=== PATIENT | female | born 1990 | race Caucasian/White ===

== ENCOUNTER 2021-11-14 23:35 | Emergency (ER) | payer SELFPAY ==
[2021-11-14 23:40] VITALS: BP 124/75; PULSE 116; RESP 18; TEMP 36.4; O2SAT 99
--- NOTE | 2021-11-15 00:21 | ED.ABDPAIN ---
HPI - Abdominal Pain General Chief Complaint: Abdominal Pain Stated Complaint: lower abd pain Time Seen by Provider: 11/15/21 00:10 History of Present Illness HPI narrative: Patient is a 31-year-old female with a history of tubal ligation (2011) here for evaluation of lower abdominal pain over the past 2 years. Patient states the pain is like a menstrual cramp, is moderate in nature, and is usually present after her menstrual cycles. Last menstrual cycle was 6 days ago, she is currently spotting. Additionally reporting thick, white/green vaginal discharge for the past several days, which is new for her. Denies fevers, chills. She has not been sexually active for the past 2 years, but she does note a history of dyspareunia when she was sexually active. Denies history of known STIs or STDs. She has not followed with an [employer] in several years, but denies history of irregular Paps. Related Data Allergies Allergy/AdvReac Type Severity Reaction Status Date / Time No Known Allergies Allergy Verified 11/15/21 00:32 Review of Systems Review of Systems: Gen: Denies fevers or chills Eyes: Denies eye pain or visual change ENT: Denies congestion Respiratory: Denies shortness of breath or cough CV: Denies chest pain or palpitations GI: Denies abdominal pain nausea, emesis or diarrhea : Reports pelvic pain. Musculoskeletal: Denies back pain or muscle pain Neuro: Denies numbness, tingling, weakness or focal weakness Skin: Denies rash Except as documented, all other systems reviewed and negative Exam Narrative: APPEARANCE: Well appearing, no pain in distress, well-nourished. Head: normocephalic and atraumatic. EYES: PERRLA/EOMI, conjunctivae clear NOSE: No nasal drainage EARS: External ear normal in appearance THROAT: Oropharynx is clear. Mucous membranes are moist. NECK: Supple. No adenopathy, no masses. RESPIRATORY: Airway patent, respirations nonlabored. Clear to auscultation bilaterally, no rales, rhonchi, wheezing. CARDIOVASCULAR: Regular rate and rhythm without murmurs, rubs, or gallops. : Exam performed with terrie Randolph. Patient notes extreme pain with insertion of speculum. Large amount of green/white discharge noted in vaginal vault. Cervical motion tenderness present. No foreign body visualized. ABDOMINAL: Normoactive bowel sounds. Soft, nontender, nondistended. No rebound tenderness or guarding. MUSCULOSKELETAL: Extremities are warm and well-perfused. Moves all extremities well. No edema. NEURO: Normal speech. No focal neurologic deficits. SKIN: Skin is warm and dry. No rashes. PSYCHIATRIC: Anxious appearing, pacing around room. Course Vital Signs Vital signs: Vital Signs Temperature 97.5 F L 11/14/21 23:40 Pulse Rate 116 H 11/14/21 23:40 Respiratory Rate 18 11/14/21 23:40 Blood Pressure 124/75 11/14/21 23:40 Pulse Oximetry 99 11/14/21 23:40 Oxygen Delivery Room Air 11/14/21 23:40 Temperature 97.5 F L 11/14/21 23:40 Pulse Rate 116 H 11/14/21 23:40 Respiratory Rate 18 11/14/21 23:40 Blood Pressure 124/75 11/14/21 23:40 Pulse Oximetry 99 11/14/21 23:40 Oxygen Delivery Room Air 11/14/21 23:40 MDM - Abdominal Pain MDM Narrative Medical decision making narrative: 31 year old female here for evaluation of pelvic pain x 2 years with vaginal discharge. Urine preg negative; afebrile and non-toxic appearing. Her symptoms of pelvic pain and bleeding that she describes to me sound consistent with a normal menstrual cycle. Given chronicity of symptoms, lack of abdominal pain on palpation, and cyclic nature of pain, do not feel imaging is indicated in the ED. Her pain improved with ibuprofen in the ED. However, there was a large amount of green/white discharge on exam accompanied by cervical motion tenderness. Swabs taken; positive for trich, others pending. Given these findings and history of multiple sexual partners, will treat for PID. Provided with [employer] follow up for routine
[2021-11-15] MEDS: IBUPROFEN 600 MG TABLET PO (00:35)
[2021-11-15] MEDS: cefTRIAXone 1 GM VIAL 0.5 GM IM (01:40)
[2021-11-15] MEDS: LIDOCAINE HCL 1% PF 30 ML VIAL (01:40)
[2021-11-15 01:57] LABS: Appearance Urine Clear (Clear); Bilirubin Urine Negative (Negative); Blood Urine Negative (Negative); Color Urine Yellow (Yellow); Glucose Urine UA Negative (Negative); Ketones Urine Negative (Negative); Leukocyte Esterase Ur Trace LEU/UL (Negative); Nitrate Urine Negative (Negative); Protein Urine Negative (Negative); Specific Grav Ur >= 1.030 (1.001-1.035); Urobilinogen Urine 0.2 mg/dL (<2.0)
[2021-11-15 02:03] LABS: Mucus Urine Few /lpf; RBC Urine 0-2 /hpf (0-2); Squamous Epithelial Cell Urine Occasional /hpf (Few)
[2021-11-15 02:08] LABS: Add Urine Microscopic? YES
[2021-11-15 02:18] VITALS: BP 123/73; PULSE 86; RESP 18; O2SAT 99
== END 2021-11-15 02:19 | disposition home or self-care (01) ==
PROVIDERS: Physician Assistant; Emergency Provider Emergency Medicine
DX: N73.9 Female pelvic inflammatory disease, unspecified (principal)
CPT/HCPCS: 81001; 81025; 87070; 87077; 87491; 87591; 87808; 96372; 99284; A9270; J0696